=== PATIENT | male | born 1965 | race African-American/Black ===

== ENCOUNTER 2024-11-30 21:38 | Emergency (ER) | payer MEDICARE, MEDICAID ==
[~2024-11-30] VITALS: Ht 193 cm; Wt 80.4 kg
[2024-11-30 21:42] VITALS: O2SAT 98
[2024-11-30] MEDS: KETOROLAC 15MG/ML VIAL IM ONE (22:53)
[2024-12-01] MEDS ORDERED: NAPR-1176 MT (00:17)
[2024-12-01 00:39] VITALS: BP 130/95; PULSE 62; RESP 20; TEMP 37; O2SAT 98
== END 2024-12-01 00:42 | disposition home or self-care (01) ==
LOC: ER 22:35
DX: S01.411A Laceration without foreign body of right cheek and temporomandibular area, initial encounter (principal); S05.11XA Contusion of eyeball and orbital tissues, right eye, initial encounter; Z79.1 Long term (current) use of non-steroidal anti-inflammatories (NSAID); Z88.0 Allergy status to penicillin; Y04.0XXA Assault by unarmed brawl or fight, initial encounter; Y93.89 Activity, other specified; Y92.89 Other specified places as the place of occurrence of the external cause; Y99.8 Other external cause status
CPT/HCPCS: 99285; 70450; 70486; 96372; J1885